=== PATIENT | male | born 1995 | race Two or more races ===

== ENCOUNTER 2018-10-15 02:15 | Emergency (ER) | payer OTHER ==
[~2018-10-15] VITALS: Ht 170.2 cm; Wt 82.7 kg
[2018-10-15 02:17] VITALS: BP 147/91
== END 2018-10-15 02:59 | disposition home or self-care (01) ==
LOC: ED 02:53
DX: L03.113 Cellulitis of right upper limb (principal); L02.413 Cutaneous abscess of right upper limb
CPT/HCPCS: 99283